=== PATIENT | male | born 1955 | race African-American/Black ===

== ENCOUNTER 2017-08-19 09:47 | Emergency (ER) | payer BC ==
[~2017-08-19] VITALS: Ht 177.8 cm; Wt 102.5 kg
[2017-08-19 10:04] VITALS: BP 153/85
[2017-08-19] MEDS ORDERED: TRAM50TA PO (10:07)
--- NOTE | 2017-08-19 10:07 | PHYS DOC ---
Adult General Chief Complaint Chief Complaint: LOWER EXT PAIN HPI HPI Patient is a 61 year old male presents the ED complaining of knee pain 2 months. Patient states there was no recent injury except for a few months ago he was walking up the stairs and heard a pop. No traumatic bone injury. States he had a negative XR at his PCP's office on 08/15/17. Patient ambulating. Describes the pain as sharp. Rates the pain as 7/10. Patient is requesting an MRI today in the ED. Denies head/neck injury, LOC, vision changes, fever, leg swelling, calf pain or recent travel. Review of Systems Review of Systems Constitutional: Denies fever or chills [] Eyes: Denies change in visual acuity, redness, or eye pain [] HENT: Denies nasal congestion or sore throat [] Respiratory: Denies cough or shortness of breath [] Cardiovascular: No additional information not addressed in HPI [] GI: Denies abdominal pain, nausea, vomiting, bloody stools or diarrhea [] : Denies dysuria or hematuria [] Musculoskeletal: Complains of knee pain. Denies back pain. [] Integument: Denies rash or skin lesions [] Neurologic: Denies headache, focal weakness or sensory changes [] Endocrine: Denies polyuria or polydipsia [] All other systems were reviewed and found to be within normal limits, except as documented in this note. Allergies Allergies Allergies Coded Allergies Type Severity Reaction Last Updated Verified No Known Drug Allergies 08/19/17 No Physical Exam Physical Exam Constitutional: Well developed, well nourished, no acute distress, non-toxic appearance. [] HENT: Normocephalic, atraumatic, bilateral external ears normal, oropharynx moist, no oral exudates, nose normal. [] Eyes: PERRLA, EOMI, conjunctiva normal, no discharge. [] Neck: Normal range of motion, no tenderness, supple, no stridor. [] Cardiovascular:Heart rate regular rhythm, no murmur [] Lungs & Thorax: Bilateral breath sounds clear to auscultation [] Abdomen: Bowel sounds normal, soft, no tenderness, no masses, no pulsatile masses. [] Skin: Warm, dry, no erythema, no rash. [] Back: No tenderness, no CVA tenderness. [] Extremities: NO BONY TENDERNESS. PAIN WITH VALGUS STRESS, no cyanosis, no clubbing, ROM intact, no edema. Negative Homans.[] Neurologic: Alert and oriented X 3, normal motor function, normal sensory function, no focal deficits noted. [] Psychologic: Affect normal, judgement normal, mood normal. [] Current Patient Data Vital Signs Vital Signs Date Time Temp Pulse Resp B/P (MAP) Pulse Ox O2 Delivery O2 Flow Rate FiO2 08/19/17 10:04 98.2 74 18 100 Room Air 98.2 EKG EKG [] Radiology/Procedures Radiology/Procedures [] Course & Med Decision Making Course & Med Decision Making Pertinent Labs and Imaging studies reviewed. (See chart for details) []Patient refuses X-ray imaging that was offered in ED today. Denies recent injury. Requesting MRI. Discussed with patient that we do not do routine MRI's in the ED. Provided contact information and education for follow-up with orthopedic office (Dr. Marquez) to obtain an MRI. Patient given crutches and a knee immobilzer. NV intact post placement. Patient asked to remain nonweightbearing until seen by orthopedics. Discussed reasons to return to the ED. Patient understands and agrees with plan. Dragon Disclaimer Dragon Disclaimer This electronic medical record was generated, in whole or in part, using a voice recognition dictation system. Departure Departure Impression: Primary Impression: Knee injury Disposition: 01 HOME, SELF-CARE Condition: STABLE Referrals: ALEM MARQUEZ II, MD Patient Instructions: Knee - Cartilage (Meniscus) Injury Scripts Tramadol Hcl (TRAMADOL HCL) 50 Mg Tablet 1 TAB PO PRN Q6HRS, #12 TAB Prov: PLIAR MCCOY 08/19/17 PILAR MCCOY Aug 19, 2017 10:07
== END 2017-08-19 10:28 | disposition home or self-care (01) ==
LOC: ER 09:47
DX: S89.91XA Unspecified injury of right lower leg, initial encounter (principal); X58.XXXA Exposure to other specified factors, initial encounter; Y93.89 Activity, other specified; Y92.89 Other specified places as the place of occurrence of the external cause; Y99.8 Other external cause status
CPT/HCPCS: 29505; 99283

== ENCOUNTER 2018-10-02 21:09 | Emergency (ER) | payer BC ==
[~2018-10-02] VITALS: Ht 177.8 cm; Wt 103.4 kg
[~2018-10-02 21:09] MED LIST: TRAM50TA PO
[2018-10-02 23:55] VITALS: BP 153/72
[2018-10-03] MEDS ORDERED: HYDR25TA PO (01:02)
[2018-10-03] MEDS ORDERED: PRED50TA PO (01:02)
[2018-10-03] MEDS ORDERED: SULF1TAB24 PO (01:02)
--- NOTE | 2018-10-03 01:02 | PHYS DOC ---
Past Medical History Past Medical History: Asthma, High Cholesterol, Hypertension Past Surgical History: Appendectomy, Tonsillectomy Additional Past Surgical Histo: elbow sx, carpal tunnel sx Alcohol Use: Occasionally Drug Use: None Adult General Chief Complaint Chief Complaint: ITCHING HPI HPI Patient is a 62 year old male who presents with facial pain and itching. A rash. This is been present for the past month. Increasing after using just for men several times. No relief with left over steroid cream or [id number] silver wound gel recommended by a pharmacist. Patient has not seen a primary care physician for this. No shortness of breath. Some yellowish, serous discharge. No purulent discharge. This is only around his facial marks/ hairline. Not present in any other areas covered with hair. No fever. No inside the mouth lesions. [] Review of Systems Review of Systems Constitutional: Denies fever or chills [] Eyes: Denies change in visual acuity, redness, or eye pain [] HENT: Denies nasal congestion or sore throat [] Respiratory: Denies cough or shortness of breath [] Cardiovascular: No chest pain or palpitations[] GI: Denies abdominal pain, nausea, vomiting, bloody stools or diarrhea [] : Denies dysuria or hematuria [] Musculoskeletal: Denies back pain or joint pain [] Integument: See history of present illness[] Neurologic: Denies headache, focal weakness or sensory changes [] Endocrine: Denies polyuria or polydipsia [] All other systems were reviewed and found to be within normal limits, except as documented in this note. Allergies Allergies Allergies Coded Allergies Type Severity Reaction Last Updated Verified No Known Drug Allergies 08/19/17 No Physical Exam Physical Exam Constitutional: Well developed, well nourished, no acute distress, non-toxic appearance. [] HENT: Normocephalic, atraumatic, bilateral external ears normal, oropharynx moist, no oral exudates, nose normal. [] Eyes: PERRLA, EOMI, conjunctiva normal, no discharge. [] Neck: Normal range of motion, no tenderness, supple, no stridor. [] Cardiovascular:Heart rate regular rhythm, no murmur [] Lungs & Thorax: Bilateral breath sounds clear to auscultation [] Abdomen: Not examined[] Skin: Warm, dry, no erythema, multiple papules and plaques along his marks line most prominent at bilateral sideburn region as well as right lower lip region. There is no significant erythema. Some serous drainage. No cervical lymphadenopathy is present.[] Back: No tenderness, no CVA tenderness. [] Extremities: No tenderness, no cyanosis, no clubbing, ROM intact, no edema. [] Neurologic: Alert and oriented X 3, normal motor function, normal sensory function, no focal deficits noted. [] Psychologic: Affect normal, judgement normal, mood normal. [] Current Patient Data Vital Signs Vital Signs Date Time Temp Pulse Resp B/P (MAP) Pulse Ox O2 Delivery O2 Flow Rate FiO2 10/02/18 23:55 98.0 66 20 153/72 (99) 98 Room Air 98.0 EKG EKG [] Radiology/Procedures Radiology/Procedures [] Course & Med Decision Making Course & Med Decision Making Pertinent Labs and Imaging studies reviewed. (See chart for details) Medical decision making: No evidence of staph scalded skin syndrome, no toxic epidermal necrolysis. No Lewis-Ayan syndrome. Nontoxic appearance of the patient.[] Dragon Disclaimer Dragon Disclaimer This electronic medical record was generated, in whole or in part, using a voice recognition dictation system. Departure Departure Impression: Primary Impression: Rash and nonspecific skin eruption Disposition: 01 HOME, SELF-CARE Condition: GOOD Referrals: MAURI HANNAH MD (PCP) Follow-up in 2 days Patient Instructions: Rash Additional Instructions: All up with your regular doctor in 2 days. Do not use any skin creams, lotions, or other products that are not prescribed. Return to the ER if worsening discomfort, difficulty breathing, or any other concerns. Scripts Sulfamethoxazole/Trimethoprim (BACTRIM DS TABLET) 1 Each Tablet 1 TAB PO BID, #14 TAB Prov: MARISSA CLEMONS DO 10/03/18 Hydroxyzine Hcl (HYDROXYZINE HCL) 25 Mg Tablet 25 MG PO QID, #40 TAB Prov: MARISSA CLEMONS DO 10/03/18 Prednisone (PREDNISONE) 50 Mg Tablet 50 MG PO DAILY for 7 Days, #7 TAB Prov: MARISSA CLEMONS DO 10/03/18 MARISSA CLEMONS DO Oct 03, 2018 01:02
[2018-10-03] MEDS ORDERED: diphenhydrAMINE HCL 25 MG CAPSULE PO ONE (01:30)
[2018-10-03] MEDS ORDERED: SMZ/TMP 800/160MG TABLET. PO ONE (01:30)
== END 2018-10-03 01:30 | disposition home or self-care (01) ==
LOC: ER 21:09
DX: L27.0 Generalized skin eruption due to drugs and medicaments taken internally (principal); J45.909 Unspecified asthma, uncomplicated; E78.00 Pure hypercholesterolemia, unspecified; I10 Essential (primary) hypertension
CPT/HCPCS: 99283; Q0163